=== PATIENT | female | born 1985 | race Native Hawaiian/Other Pacific Islander ===

== ENCOUNTER 2019-09-03 13:50 | Outpatient (CLI) | payer OTHER | END 2019-09-03 22:34 | disposition home or self-care (01) | LOC: US 13:50 | DX: N94.19 Other specified dyspareunia (principal) ==

== ENCOUNTER 2021-07-07 10:51 | Outpatient (CLI) | payer OTHER | END 2021-07-07 19:10 | disposition home or self-care (01) | LOC: RAD 10:51 | PROVIDERS: ATTEND Nurse Practitioner Family | DX: U07.1 COVID-19 (principal) ==

== ENCOUNTER 2021-08-31 15:54 | Outpatient (CLI) | payer OTHER | END 2021-08-31 19:42 | disposition home or self-care (01) | LOC: US 15:54 | PROVIDERS: ATTEND Nurse Practitioner Family | DX: E03.8 Other specified hypothyroidism (principal) ==

== ENCOUNTER 2021-12-20 11:04 | Outpatient (CLI) | payer OTHER | END 2021-12-20 20:38 | disposition home or self-care (01) | LOC: US 11:04 → CT 11:04 | PROVIDERS: ATTEND Family Medicine | DX: R10.9 Unspecified abdominal pain (principal); N83.291 Other ovarian cyst, right side | CPT/HCPCS: Q9963 ==

== ENCOUNTER 2023-01-01 11:08 | Emergency (ER) | payer OTHER ==
[~2023-01-01] VITALS: Ht 162.6 cm; Wt 77.1 kg
== END 2023-01-01 13:36 | disposition home or self-care (01) ==
LOC: ED 11:08
DX: M54.9 Dorsalgia, unspecified (principal); R51.9 Headache, unspecified; M25.532 Pain in left wrist; W19.XXXA Unspecified fall, initial encounter
CPT/HCPCS: 81025; 99283